=== PATIENT | female | born 1965 | race Caucasian/White ===

== ENCOUNTER 2017-02-23 03:12 | Emergency (ER) | payer MEDICAID ==
[2017-02-23] MEDS ORDERED: ONDANSETRON HCL IV 4 MG/2 ML VIAL IV ONE (03:49)
[2017-02-23] MEDS ORDERED: 0.9 % SODIUM CHLORIDE 1,000 ML BAG IV ONE ×2 (03:49→03:52)
[2017-02-23] MEDS ORDERED: ACETAMINOPHEN 325 MG TAB PO ONE (03:51)
--- NOTE | 2017-02-23 03:59 | Emergency Department Record ---
History of Present Illness - General Chief Complaint: Cough Stated Complaint: SICK SINCE THURSDAY Time Seen by Provider: 02/23/17 03:25 Source: Patient Mode of Arrival: Ambulatory - History of Present Illness Initial Comments: The patient states that she started feeling sick Thursday morning, then developed a cough, chills and fevers by that evening. She began to cough so hard that she vomited several times large amounts of stomach contents until she had bilious emesis. Thursday and yesterday she continued to cough but has not vomited very much. She then started having watery diarrhea times four yesterday and today. MD Complaint: Cough, Fever Onset/Timin -: Days(s) Severity: Moderate Consistency: Other - Related Data Home Medications Medication Instructions Recorded Confirmed Last Taken Cholecalciferol (Vitamin D3) 50,000 unit PO ASDIR 02/23/17 02/23/17 Unknown [Vitamin D] Fluoxetine HCl [Fluoxetine HCl] 40 mg PO DAILY 02/23/17 02/23/17 Unknown Lorazepam [Ativan] 0.5 mg PO BID PRN 02/23/17 02/23/17 Unknown Allergies Allergy/AdvReac Type Severity Reaction Status Date / Time Carbonic Anhydrase Inhibitors Allergy Unknown ANAPHYLAXIS Verified 07/08/16 14: 13 moxifloxacin Allergy Unknown ANAPHYLAXIS Verified 07/08/16 14:13 Quinolones Allergy Unknown HIVES Verified 07/08/16 14:13 Sulfa (Sulfonamide Allergy Unknown HIVES Verified 07/08/16 14:13 Antibiotics) sulfacetamide Allergy Unknown HIVES Verified 07/08/16 14:13 Sulfonylureas Allergy Unknown HIVES Verified 07/08/16 14:13 Thiazides Allergy Unknown HIVES Verified 07/08/16 14:13 morphine Allergy PT UNSURE Verified 02/23/17 03:38 OF REACTION moxifloxacin HCl Allergy ANAPHYLAXIS Verified 02/23/17 03:37 [From Avelox] sulfamethoxazole Allergy DIFFICULTY Verified 02/23/17 03:38 [From Bactrim] BREATHING trimethoprim [From Bactrim] Allergy DIFFICULTY Verified 02/23/17 03:38 BREATHING Allergies: Allergy Unknown HIVES Uncoded 07/08/16 14:13 Travel Screening - Travel/Exposure Within Last 30 Days Have you traveled within the last 30 days?: No - Travel/Exposure Within Last Year Have you traveled outside the [place] in the last year?: No - Additonal Travel Details Have you been exposed to anyone with a communicable illness?: No - Travel Symptoms Symptom Screening: None Review of Systems Reviewed: No additional complaints except as noted below Constitutional: Reports: As per HPI. Denies: Chills, Fever, Malaise, Night sweats, Weakness, Weight change Eyes: Reports: As per HPI. Denies: Eye discharge, Eye pain, Photophobia, Vision change ENT: Reports: As per HPI. Denies: Congestion, Dental pain, Ear pain, Epistaxis , Hearing loss, Throat pain Respiratory: Reports: As per HPI. Denies: Cough, Dyspnea, Hemoptysis, Stridor, Wheezes Cardiovascular: Reports: As per HPI. Denies: Arrhythmia, Chest pain, Dyspnea on exertion, Edema, Murmurs, Orthopnea, Palpitations, Paroxysmal nocturnal dyspnea, Rheumatic Fever, Syncope Endocrine: Reports: As per HPI. Denies: Fatigue, Heat or cold intolerance, Polydipsia, Polyuria Gastrointestinal: Reports: As per HPI. Denies: Abdominal pain, Constipation, Diarrhea, Hematemesis, Hematochezia, Melena, Nausea, Vomiting Genitourinary: Reports: As per HPI. Denies: Abnormal menses, Discharge, Dyspareunia, Dysuria, Frequency, Hematuria, Incontinence, Retention, Urgency Musculoskeletal: Reports: As per HPI. Denies: Arthralgia, Back pain, Gout, Joint swelling, Myalgia, Neck pain Skin: Reports: As per HPI. Denies: Bruising, Change in color, Change in hair/ nails, Lesions, Pruritus, Rash Neurological: Reports: As per HPI. Denies: Abnormal gait, Confusion, Headache, Numbness, Paresthesias, Seizure, Tingling, Tremors, Vertigo, Weakness Psychiatric: Reports: As per HPI. Denies: Anxiety, Auditory hallucinations, Depression, Homicidal thoughts, Suicidal thoughts, Visual hallucinations Hematological/Lymphatic: Reports: As per HPI. 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 negative: External canal tenderness Nasal Exam: Normal inspection. negative: Discharge, Sinus tenderness Mouth exam: Normal external inspection, Tongue normal Teeth exam: Normal inspection. negative: Dental caries Throat exam: Normal inspection. negative: Tonsillar erythema, Tonsillar exudate - Neck Neck exam: Normal inspection, Full ROM, Lymphadenopathy (tender without palpable lymph nodes bilaterally ). negative: Meningismus, Tenderness - Respiratory Respiratory exam: Normal lung sounds bilaterally, Rhonchi (with coughing ). negative: Respiratory distress - Cardiovascular Cardiovascular Exam: Normal rhythm, Normal heart sounds, Tachycardia - GI/Abdominal GI/Abdominal exam: Soft, Normal bowel sounds, Tenderness (diffusely tender upper abdomen) - Rectal Rectal exam: Deferred - exam: Deferred - Extremities Extremities exam: Normal inspection, Full ROM, Normal capillary refill. negative: Tenderness - Back Back exam: Reports: Normal inspection, Full ROM. Denies: Muscle spasm, Rash noted, Tenderness - Neurological Neurological exam: Alert, Normal gait, Oriented X3, Reflexes normal - Psychiatric Psychiatric exam: Normal affect, Normal mood - Skin Skin exam: Dry, Intact, Normal color, Warm Course Vital Signs 02/23/17 02/23/17 03:18 03:26 Temperature 98.9 F 101.8 F H Pulse Rate [ 101 H Pulse Ox Probe] Respiratory 24 Rate Blood Pressure 127/73 [Left Arm] Pulse Ox 94 L - Reevaluation(s) Reevaluation #1: PAtient is finishing her second large glass water and her first liter NS is finishing up. Will DC home when IV infused. 02/23/17 05:06 Medical Decision Making - Management Options MDM Management: No Additional Work-up Planned - Data Complexity MDM Data: Labs Ordered and/or Reviewed (Influenza A and B both Neg; Strep Neg.) , X-Ray Ordered and/or Reviewed (CXR Neg per ED physician) - Lab Data Result diagrams: 02/23/17 04:11 02/23/17 04:11 Disposition Disposition: Discharge Clinical Impression: Viral Infection, Dehydration, Vomiting and Diarrhea, Viral bronchitis Disposition: Home, Self-Care Condition: (2) Stable Instructions: Cold Symptoms (ED), Acute Bronchitis (ED), Acute Nausea and Vomiting (ED) Additional Instructions: Home, rest. Push fluids. Tylenol or ibuprofen as needed as directed. Follow up with PCP next week as needed. Bedside vaporizer. Throat lozenges, sprays for daytime use. Forms: Patient Portal Access
[2017-02-23 04:09] LABS: URINE APPEARANCE CLEAR; URINE BILIRUBIN NEGATIVE (NEGATIVE); URINE BLOOD NEGATIVE (NEGATIVE); URINE COLOR YELLOW; URINE GLUCOSE (UA) NEGATIVE (NEGATIVE); URINE KETONE NEGATIVE (NEGATIVE); URINE LEUKOCYTE ESTERASE NEGATIVE (NEGATIVE); URINE NITRITE NEGATIVE (NEGATIVE); URINE UROBILINOGEN 0.2 E.U./dL (0.20 - 1.00)
[2017-02-23 04:15] LABS: STREP A SCREEN NEGATIVE (NEGATIVE)
[2017-02-23 04:18] LABS: BASO % 0.5 % (0-6); GRAN % 58.7 % (47-80); HEMATOCRIT 43.9 % (35.0-47.0); HEMOGLOBIN 14.4 gm/dl (11.6-16.0); LYMPH % 28.7 % (16-45); MEAN CELL VOLUME 87.6 fl (81-97); MEAN CORPUSCULAR HEMOGLOBIN 28.7 pg (27-33); MEAN CORPUSCULAR HGB CONC 32.8 g/dl (32-36); MEAN PLATELET VOLUME 10.2 fl (7.4-10.4); MONO % 11.1 % (0-9); PLATELET COUNT 214 K/uL (130-400); RED BLOOD COUNT 5.01 M/uL (3.80-5.40); RED CELL DISTRIBUTION WIDTH 12.3 % (11.5-14.5); WHITE BLOOD COUNT W/O DIFF 5.8 K/uL (4.2-12.2)
[2017-02-23 04:21] LABS: INFLUENZA A NEGATIVE (NEGATIVE); INFLUENZA B NEGATIVE (NEGATIVE)
[2017-02-23 04:30] LABS: ALBUMIN 4.3 gm/dL (3.5-5.0); ALKALINE PHOSPHATASE 69 U/L (38-126); ALT/SGPT 36 U/L (9-52); ANION GAP 12.3 (7-16); AST/SGOT 27 U/L (14-36); BILIRUBIN,TOTAL 0.35 mg/dL (0.2-1.3); BLOOD UREA NITROGEN 8 mg/dL (7-17); CARBON DIOXIDE 25.7 mmol/L (22-30); CREATININE 0.5 mg/dL (0.52-1.04); EST GLOMERULAR FILTRATION RATE > 60 ml/min; GLUCOSE,RANDOM 133 mg/dL (70-110); LIPASE 77 U/L (23-300); TOTAL PROTEIN 7.6 gm/dL (6.3-8.2)
--- NOTE | 2017-02-26 14:20 | RADIOLOGY REPORT ---
EXAM: CHEST, TWO VIEWS HISTORY: COUGH AND FEVER. TECHNIQUE: PA and lateral views of the chest were obtained. Comparison: Two view chest 07/08/16. FINDINGS: Stable heart size. The lungs appear expanded with no acute infiltrate seen. No pleural effusion or pneumothorax identified. Mild spurring in the spine. Mild thoracic curve to the right. IMPRESSION: 1. MILD THORACIC CURVE TO THE RIGHT WITH MILD SPURRING IN THE SPINE. 2. NO DEFINITE ACUTE INFILTRATE SEEN. JOB NUMBER: [id number] MTDD
== END 2017-02-23 05:32 | disposition home or self-care (01) ==
LOC: ER 03:12
DX: J20.8 Acute bronchitis due to other specified organisms (principal); E86.0 Dehydration; R11.11 Vomiting without nausea; R19.7 Diarrhea, unspecified; Z87.891 Personal history of nicotine dependence
CPT/HCPCS: 99284 ×2; 96374; 96361; 83690; 85025; 80076; 80048; 81003; 87880; 87400; 71020; J2405; J7030

== ENCOUNTER 2019-07-21 19:39 | Emergency (ER) | payer MEDICAID, MEDICARE ==
--- NOTE | 2019-07-21 20:20 | Emergency Department Record ---
History of Present Illness - General Chief complaint: Rash Stated complaint: RASH ON RT SIDE Time Seen by Provider: 07/21/19 19:59 Source: Patient Mode of Arrival: Ambulatory Limitations: No limitations - History of Present Illness Initial comments: pt had a sudden outbreak today of a rash on her r flank that itched so she took benadryl. it has continued to spread. she alos has a couple of spots on her r arm that itch athat do not look like rash on flank and appeart more like mosquito bites MD complaint: Rash Onset/Timin -: Hour(s) Location: Back Severity: Mild Quality: Other Consistency: Constant Improves with: Medication Context: None Associated symptoms: Denies other symptoms Treatments Prior to Arrival: Benadryl, NSAID, OTC topical medication - Related Data Home Medications Medication Instructions Recorded Confirmed Last Taken Multivitamin [One Daily 1 each PO DAILY 07/21/19 07/21/19 Unknown Multivitamin] Previous Rx's Medication Instructions Recorded Famciclovir 500 mg PO Q8HR #21 tablet 07/21/19 Hydrocodone/Acetaminophen [[place] 1 tab PO Q6H PRN #10 tab 07/21/19 5mg/325mg] Methylprednisolone [Medrol Dose 4 mg PO ASDIR #1 tab.ds.pk 07/21/19 Pack] Allergies Allergy/AdvReac Type Severity Reaction Status Date / Time Carbonic Anhydrase Inhibitors Allergy Unknown ANAPHYLAXIS Verified 07/21/19 19:52 moxifloxacin Allergy Unknown ANAPHYLAXIS Verified 07/21/19 19:52 Quinolones Allergy Unknown HIVES Verified 07/21/19 19:52 Sulfa (Sulfonamide Allergy Unknown HIVES Verified 07/21/19 19:52 Antibiotics) sulfacetamide Allergy Unknown HIVES Verified 07/21/19 19:52 Sulfonylureas Allergy Unknown HIVES Verified 07/21/19 19:52 Thiazides Allergy Unknown HIVES Verified 07/21/19 19:52 morphine Allergy PT UNSURE Verified 07/21/19 19:52 OF REACTION moxifloxacin HCl Allergy ANAPHYLAXIS Verified 07/21/19 19:52 [From Avelox] sulfamethoxazole Allergy DIFFICULTY Verified 07/21/19 19:52 [From Bactrim] BREATHING trimethoprim [From Bactrim] Allergy DIFFICULTY Verified 07/21/19 19:52 BREATHING Allergies: Allergy Unknown HIVES Uncoded 07/21/19 19:52 Travel Screening - Travel/Exposure Within Last 30 Days Have you traveled within the last 30 days?: No - Travel/Exposure Within Last Year Have you traveled outside the [place] in the last year?: No - Additonal Travel Details Have you been exposed to anyone with a communicable illness?: No - Travel Symptoms Symptom Screening: None Review of Systems Reviewed: No additional complaints except as noted below Constitutional: Reports: As per HPI. Denies: Chills, Fever, Malaise, Night sweats, Weakness, Weight change Eyes: Reports: As per HPI. Denies: Eye discharge, Eye pain, Photophobia, Vision change ENT: Reports: As per HPI. Denies: Congestion, Dental pain, Ear pain, Epistaxis, Hearing loss, Throat pain Respiratory: Reports: As per HPI. Denies: Cough, Dyspnea, Hemoptysis, Stridor, Wheezes Cardiovascular: Reports: As per HPI. Denies: Arrhythmia, Chest pain, Dyspnea on exertion, Edema, Murmurs, Orthopnea, Palpitations, Paroxysmal nocturnal dyspnea, Rheumatic Fever, Syncope Endocrine: Reports: As per HPI. Denies: Fatigue, Heat or cold intolerance, Polydipsia, Polyuria Gastrointestinal: Reports: As per HPI. Denies: Abdominal pain, Constipation, Diarrhea, Hematemesis, Hematochezia, Melena, Nausea, Vomiting Genitourinary: Reports: As per HPI. Denies: Abnormal menses, Discharge, Dyspareunia, Dysuria, Frequency, Hematuria, Incontinence, Retention, Urgency Musculoskeletal: Reports: As per HPI. Denies: Arthralgia, Back pain, Gout, Joint swelling, Myalgia, Neck pain Skin: Reports: As per HPI, Rash. Denies: Bruising, Change in color, Change in hair/nails, Lesions, Pruritus Neurological: Reports: As per HPI. Denies: Abnormal gait, Confusion, Headache, Numbness, Paresthesias, Seizure, Tingling, Tremors, Vertigo, Weakness Psychiatric: Reports: As per HPI. Denies: Anxiety, Auditory hallucinations, Depression, Homicidal thoughts, Suicidal thoughts, Visual hallucinations Hematological/Lymphatic: Reports: As per HPI. 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 negative: External canal tenderness Nasal Exam: Normal inspection. negative: Discharge, Sinus tenderness Mouth exam: Normal external inspection, Tongue normal Teeth exam: Normal inspection. negative: Dental caries Throat exam: Normal inspection. negative: Tonsillar erythema, Tonsillar exudate - Neck Neck exam: Normal inspection, Full ROM. negative: Tenderness - Respiratory Respiratory exam: Normal lung sounds bilaterally. negative: Respiratory distress - Cardiovascular Cardiovascular Exam: Regular rate, Normal rhythm, Normal heart sounds - GI/Abdominal GI/Abdominal exam: Soft, Normal bowel sounds. negative: Tenderness - Rectal Rectal exam: Deferred - exam: Deferred - Extremities Extremities exam: Normal inspection, Full ROM, Normal capillary refill. negativ e: Tenderness - Back Back exam: Reports: Normal inspection, Full ROM. Denies: Muscle spasm, Rash noted, Tenderness - Neurological Neurological exam: Alert, CN II-XII intact, Normal gait, Oriented X3 - Psychiatric Psychiatric exam: Normal affect, Normal mood - Skin Skin exam: Dry, Erythema, Intact, Normal color, Rash, Warm Distribution of rash: Back, Other (r flank) Description of rash: Blisters, Confluent, Erythematous, Tenderness Course Vital Signs 07/21/19 19:46 Temperature 98.2 F Pulse Rate 107 H Respiratory 22 Rate Blood Pressure 128/73 Pulse Ox 98 Disposition Disposition: Discharge Clinical Impression: Shingles Qualifiers: Herpes zoster complications: without complications Qualified Code(s): B02.9 - Zoster without complications Disposition: Home, Self-Care Condition: (1) Good Instructions: Shingles (ED) Additional Instructions: follow up with family doctor. return sooneer if worse. avoid contact wiht immunecompromised and people. wash hands frequently. Prescriptions: Famciclovir 500 mg PO Q8HR #21 tablet Methylprednisolone [Medrol Dose Pack] 4 mg PO ASDIR #1 tab.ds.pk Hydrocodone/Acetaminophen [[place] 5mg/325mg] 1 tab PO Q6H PRN #10 tab PRN Reason: Pain - General Quality - Quality Measures Quality Measures: N/A - Blood Pressure Screening Does Patient Have Any of the Following: No Blood Pressure Classification: Pre-Hypertensive BP Reading Systolic Measurement: 128 Diastolic Measurement: 73 Screening for High Blood Pressure: < Pre-Hypertensive BP, F/U Documented > [G8950] Pre-Hypertensive Follow-up Interventions: Follow-up with rescreen every year.
== END 2019-07-21 20:31 | disposition home or self-care (01) ==
LOC: ER 19:39
DX: B02.9 Zoster without complications (principal)
CPT/HCPCS: 99282

== ENCOUNTER 2019-08-10 03:55 | Emergency (ER) | payer MEDICARE ==
--- NOTE | 2019-08-10 04:02 | Emergency Department Record ---
History of Present Illness - General Stated Complaint: COUGH, CONGESTION Time Seen by Provider: 08/10/19 03:56 Source: Patient Mode of Arrival: Ambulatory Limitations: No limitations - History of Present Illness Initial Comments: 53 yo female presents with a cough and congestion for about a week. She is a smoker. She is producing sputum that is discolored. No blood in the sputum. She denies an history of COPD. She has thick nasal discharge as well. No edema. No chest pain. She had similar symptoms about one month ago. She saw her PCP last week for shingles but states her doctor did not focus on her lungs. MD Complaint: Cough, Nasal congestion -: Week(s) (1) Severity: Moderate Quality: Other Consistency: Constant Improves With: Nothing Worsens With: Other (Worse at night) Associated Symptoms: Cough, Nasal congestion - Related Data Home Medications Medication Instructions Recorded Confirmed Last Taken Fluticasone Propionate [Flonase] 2 inh INH BID 08/10/19 08/10/19 Unknown Triamcinolone Acet Cream [Kenalog 1 applic TOP BID 08/10/19 08/10/19 Unknown Cream] Previous Rx's Medication Instructions Recorded Famciclovir 500 mg PO Q8HR #21 tablet 07/21/19 Hydrocodone/Acetaminophen [[place] 1 tab PO Q6H PRN #10 tab 07/21/19 5mg/325mg] Azithromycin [Zithromax] 250 mg PO DAILY #4 tab 08/10/19 Prednisone [Prednisone 20Mg] 20 mg PO BID #10 tab 08/10/19 Allergies Allergy/AdvReac Type Severity Reaction Status Date / Time Carbonic Anhydrase Inhibitors Allergy Unknown ANAPHYLAXIS Verified 08/10/19 04:26 moxifloxacin Allergy Unknown ANAPHYLAXIS Verified 08/10/19 04:26 Quinolones Allergy Unknown HIVES Verified 08/10/19 04:26 Sulfa (Sulfonamide Allergy Unknown HIVES Verified 08/10/19 04:26 Antibiotics) sulfacetamide Allergy Unknown HIVES Verified 08/10/19 04:26 Sulfonylureas Allergy Unknown HIVES Verified 08/10/19 04:26 Thiazides Allergy Unknown HIVES Verified 08/10/19 04:26 morphine Allergy PT UNSURE Verified 08/10/19 04:26 OF REACTION moxifloxacin HCl Allergy ANAPHYLAXIS Verified 08/10/19 04:26 [From Avelox] sulfamethoxazole Allergy DIFFICULTY Verified 08/10/19 04:26 [From Bactrim] BREATHING trimethoprim [From Bactrim] Allergy DIFFICULTY Verified 07/21/19 19:52 BREATHING Allergies: Allergy Unknown HIVES Uncoded 07/21/19 19:52 Review of Systems Constitutional: Denies: Chills, Fever, Malaise, Weakness Eyes: Denies: Eye discharge ENT: Reports: Congestion. Denies: Throat pain Respiratory: Reports: Cough. Denies: Dyspnea, Hemoptysis, Stridor, Wheezes Cardiovascular: Denies: Chest pain, Palpitations, Syncope Endocrine: Denies: Fatigue Gastrointestinal: Denies: Abdominal pain, Diarrhea, Nausea, Vomiting Genitourinary: Denies: Dysuria, Urgency Skin: Reports: Rash (recent shingles). Denies: Bruising, Change in color Neurological: Denies: Confusion, Headache Psychiatric: Denies: Anxiety Hematological/Lymphatic: Denies: Easy bleeding, Easy bruising Past Medical History - SOCIAL HISTORY Smoking Status: Light tobacco smoker (<10/day) Drug Use: Heavy Drug Use Detail:: Marijuana - RESPIRATORY Hx Respiratory Disorders: No - CARDIOVASCULAR Hx Cardio Disorders: No - NEURO Hx Neuro Disorders: No - GI Hx GI Disorders: No - Hx Genitourinary Disorders: No - ENDOCRINE Hx Endocrine Disorders: No - MUSCULOSKELETAL Hx Musculoskeletal Disorders: Yes Hx Arthritis: Yes Hx Fibromyalgia: Yes Comment:: DJD; bilat knees bone on bone arthritis - PSYCH Hx Psych Problems: Yes Hx Anxiety: Yes Hx Depression: Yes - HEMATOLOGY/ONCOLOGY Hx Hematology/Oncology Disorders: No Physical Exam - General General Appearance: Alert, Oriented x3, Cooperative, No acute distress, Other (No acute distress) Limitations: No limitations - Head Head exam: Atraumatic, Normal inspection - Eye Eye exam: Normal appearance. negative: Conjunctival injection, Scleral icterus - ENT ENT exam: Normal exam, Mucous membranes moist, Normal orophraynx Ear exam: Normal external inspection Nasal Exam: Normal inspection Mouth exam: Normal external inspection Teeth exam: Normal inspection Throat exam: Normal inspection - Neck Neck exam: Normal inspection. negative: Lymphadenopathy, Tenderness - Respiratory Respiratory exam: Normal lung sounds bilaterally, Prolonged expiratory, Wheezes, Other (occasional cough, no conversational dyspnea, diffuse wheeze but normal work of breathing). negative: Accessory muscle use, Respiratory distress, Rhonchi, Stridor - Cardiovascular Cardiovascular Exam: Regular rate, Normal rhythm, Normal heart sounds. negative: Tachycardia - GI/Abdominal GI/Abdominal exam: Soft. negative: Tenderness - Rectal Rectal exam: Deferred - exam: Deferred - Extremities Extremities exam: Normal inspection. negative: Pedal edema, Tenderness - Back Back exam: Denies: CVA tenderness (R), CVA tenderness (L) - Neurological Neurological exam: Alert, Oriented X3 - Psychiatric Psychiatric exam: Normal affect, Normal mood. negative: Agitated, Anxious - Skin Skin exam: negative: Abrasion, Cyanosis, Erythema, Mottled Course - Reevaluation(s) Reevaluation #1: 08/10/19 04:13 The vitals were reviewed No significant abnormalities No fever, tachycardia, or hypoxia Mild diffuse wheeze otherwise non labored, conversational dyspnea, no edema, no rales. 08/10/19 04:22 No visible residual shingles rash RT to provide a Duoneb for diffuse wheezing 08/10/19 04:24 08/10/19 04:42 The patient was rechecked after the Duoneb. She is much improved with mild wheeze. She will be provided an Albuterol MDI prior to DC We discussed home care, recommended no more smoking, and reasons to return to the ED Disposition Disposition: Discharge Clinical Impression: COPD with exacerbation Disposition: Home, Self-Care Condition: (1) Good Instructions: COPD (Chronic Obstructive Pulmonary Disease) (ED) Additional Instructions: Call your doctor for the next available follow up appointment Review this ER visit and the tests performed with your family doctor Return to the ER for a recheck if worse, any new concerns or questions Take the prescriptions provided as directed Prescriptions: Prednisone [Prednisone 20Mg] 20 mg PO BID #10 tab Azithromycin [Zithromax] 250 mg PO DAILY #4 tab Time of Disposition: 04:43 Quality - Quality Measures Quality Measures: N/A - Blood Pressure Screening Does Patient Have Any of the Following: No Blood Pressure Classification: Hypertensive Reading Systolic Measurement: 142 Diastolic Measurement: 91 Screening for High Blood Pressure: < Pre-Hypertensive BP, F/U Documented > [G89 50] Pre-Hypertensive Follow-up Interventions: Referral to alternative/primary care provider.
[2019-08-10] MEDS ORDERED: IPRATROPIUM/ALBUTEROL (0.5MG/3MG) NEB INH ONE (04:19)
[2019-08-10] MEDS ORDERED: PREDNISONE 20 MG TAB PO ONE (04:19)
[2019-08-10] MEDS ORDERED: AZITHROMYCIN 500 MG TABLET PO ONE (04:19)
[2019-08-10] MEDS ORDERED: ALBUTEROL HFA 8 GM INHALER INH ONE (04:41)
== END 2019-08-10 05:17 | disposition home or self-care (01) ==
LOC: ER 03:55
DX: J44.1 Chronic obstructive pulmonary disease with (acute) exacerbation (principal); F17.210 Nicotine dependence, cigarettes, uncomplicated
CPT/HCPCS: 99284 ×2; 94640 ×2; 94664; J7512